=== PATIENT | female | born 1970 | race Caucasian/White ===

== ENCOUNTER 2019-07-17 21:58 | Emergency (ER) | payer SELFPAY ==
[2019-07-17] MEDS ORDERED: HYDROcodone/Acetaminophen 10/325 mg Tablet ONE (22:19)
[2019-07-17] MEDS ORDERED: Dexamethasone 4 MG TAB ONE (22:19)
== END 2019-07-17 22:31 | disposition home or self-care (01) ==
LOC: MADERS 21:58
DX: M25.572 Pain in left ankle and joints of left foot (principal); M25.571 Pain in right ankle and joints of right foot; F17.210 Nicotine dependence, cigarettes, uncomplicated; X50.9XXA Other and unspecified overexertion or strenuous movements or postures, initial encounter
CPT/HCPCS: 99283; J8540

== ENCOUNTER 2019-07-19 23:01 | Emergency (ER) | payer MEDICAID, OTHER ==
[2019-07-19] MEDS ORDERED: Dexamethasone 10 MG/ML VIAL ONE (23:32)
== END 2019-07-19 23:50 | disposition home or self-care (01) ==
LOC: MADERS 23:01
DX: G57.61 Lesion of plantar nerve, right lower limb (principal); K27.9 Peptic ulcer, site unspecified, unspecified as acute or chronic, without hemorrhage or perforation; F17.210 Nicotine dependence, cigarettes, uncomplicated
CPT/HCPCS: 96372; 99283; J1100